=== PATIENT | male | born 1975 | race Caucasian/White ===

== ENCOUNTER 2020-09-18 04:20 | Emergency (ER) | payer MEDICARE, MEDICAID, SELFPAY ==
--- NOTE | ~2020-09-18 | CT_ITS ---
EXAMINATION: CT HEAD WITHOUT CONTRAST CLINICAL INFORMATION: Seizure with fall COMPARISON: 11/22/2017 TECHNIQUE: Contiguous axial imaging was performed from the skull base to vertex without intravenous contrast. This CT examination was performed using dose optimization techniques as appropriate, variously including the following: * Automated exposure control * Adjustment of mA and/or kV according to patient size (this includes techniques or standardized protocols for targeted exams where dose is matched to indication/reason for exam; i.e. extremities or head) Use of iterative reconstruction technique DLP: 716 mGy-cm. FINDINGS: There is no evidence of acute intracranial hemorrhage or territorial infarction. No abnormal mass effect or midline shift is seen. [place] to white matter differentiation is well preserved. No extra-axial fluid collections are identified. No hydrocephalus. No significant volume loss. There is no abnormal attenuation within the brain parenchyma. No acute osseous or soft tissue abnormality. Chronic depression of the right lamina papyracea. Partial opacification of the ethmoid air cells.. The mastoid air cells and visualized portions of the paranasal sinuses are otherwise well aerated. CT/CT head/brain wo con IMPRESSION: No acute intracranial pathology.
[2020-09-18 04:28] VITALS: BP 115/74; PULSE 101; RESP 15; O2SAT 96; BMI 28.0
[2020-09-18] MEDS: 0.9 % Sodium Chloride 1,000 ML 999 ML IV (04:46)
--- NOTE | 2020-09-18 04:46 | ECG_ITS ---
Test Reason : SEIZURE Blood Pressure : / mmHG Vent. Rate : 096 BPM Atrial Rate : 096 BPM P-R Int : 172 ms QRS Dur : 084 ms QT Int : 342 ms P-R-T Axes : 060 063 007 degrees QTc Int : 432 ms Normal sinus rhythm Nonspecific T wave abnormality Borderline ECG No previous ECGs available Referred By: Dena Gross Electronically Signed By:FELECIA KEYES
--- NOTE | 2020-09-18 04:47 | ED_ITS ---
HPI - Seizure General Chief Complaint: Seizure Stated Complaint: seizure Time Seen by Provider: 09/18/20 04:46 Source: family () and EMS Mode of arrival: EMS History of Present Illness HPI Narrative: 45-year-old male who presents via EMS for reported seizures. Patient remains groggy on arrival but protecting his airway in history was provided by the via phone call made by nursing. states that she and her were talking and then escalated to he did discussion at which time the patient began having seizures, she reports 3 seizures each 1 lasting approximately 1 minute. denies any color changes and states that patient did not fall. also endorses that patient's medications were recently increased. Related Data Allergies Allergy/AdvReac Type Severity Reaction Status Date / Time phenytoin [From DILANTIN] Allergy Unknown SWELLING Unverified 01/11/20 19:19 Review of Systems Review of Systems: Pertinent positives and negatives as stated in HPI 10 point review of systems is otherwise negative. PMFSH Past Medical History Source: nursing notes reviewed Social History Social History Advance Directives: No Physical Exam Vital Signs: Vital Signs: Last Vital Signs Pulse 101 H 09/18/20 04:28 Resp 15 09/18/20 04:28 BP 115/74 09/18/20 04:28 Pulse Ox 96 09/18/20 04:28 Body Mass Index 28.0 VITAL SIGNS: Reviewed. GENERAL: Well developed, well nourished, post ictal HEAD: Normocephalic/atraumatic, EYES: PERRLA, EOMI EARS: Ext canals without abnormality NOSE: Nares patent bilateral OROPHARYNX: no oral lesions noted, posterior pharynx clear NECK: Supple, no adenopathy LUNGS: Normal breath sounds. No adventitious sounds or accessory muscle use. SpO2<96> CARDIOVASCULAR: Regular rate and rhythm without noted murmurs ABDOMEN: Soft, non-tender, non-distended with bowel sounds. NEUROLOGIC: Alert and oriented x 4. Strength and sensation to light touch were grossly intact x 4. Course Course Course Narrative: This is a 45-year-old male with apparent seizure activity. Will evaluate for evidence infection, anemia, electrolyte, or low prescribed drug levels etiologies. - IV fluids, EKG, CT head, labs, seizure medication levels, MENDOZA, ethanol, UA Signed out to Dr. Constantino. MDM - Seizure Lab Data Result diagrams: 09/18/20 05:54 09/18/20 05:54 Labs: Lab Results 09/18/20 09/18/20 09/18/20 Range/Units 05:54 05:54 05:54 WBC 7.3 (4.8-10.8) X10*3/uL RBC 5.15 (4.60-5.80) X10*6/uL Hgb 15.2 (14.0-18.0) g/dl Hct 45.4 (42-52) % MCV 88.2 (80-98) fL MCH 29.5 (27.0-33.0) pg MCHC 33.5 (31.0-36.0) g/dl RDW 14.5 (11.0-16.0) % Plt Count 191 (160-400) X10*3/uL MPV 10.7 (9.4-12.4) fL Immature Gran % (Auto) 2.1 H (0.0-0.4) % Neut % (Auto) 40.9 L (45-73) % Lymph % (Auto) 47.2 H (20-40) % [place] % (Auto) 7.7 (2-11) % Eos % (Auto) 1.4 (0-4) % Baso % (Auto) 0.7 (0-2) % Lymph # (Auto) 3.5 (1.2-4.9) X10*3/uL [place] # (Auto) 0.6 (0.1-1.2) X10*3/uL Eos # (Auto) 0.1 (0.0-0.4) X10*3/uL Baso # (Auto) 0.1 (0.0-0.2) X10*3/uL Abs Immat Gran (auto) 0.15 H (0.00-0.03) X10*3/uL Absolute Neuts (auto) 3.0 (2.0-8.3) X10*3/uL Absolute Nucleated RBC 0.000 (0.0-0.012) X10*3/uL Nucleated RBC % (auto) 0.0 (0.0-0.2) /100WBC Sodium 141 (135-145) mmol/L Potassium 3.7 (3.3-5.1) mmol/L Chloride 109 H (96-108) mmol/L Carbon Dioxide 20 L (22-29) mmol/L Anion Gap 16 (12-20) BUN 10 (9-16) mg/dL Creatinine 1.30 (0.5-1.4) mg/dL Estim Creat Clear Calc 78.0 Estimated GFR 60 Random Glucose 98 (60-115) mg/dL Calcium 8.8 (8.4-10.2) mg/dL Total Bilirubin 0.3 (0.0-1.0) mg/dL AST 22 (5-37) U/L ALT 26 (0-40) U/L Alkaline Phosphatase 68 (39-117) U/L Total Protein 6.9 (6.5-8.0) g/dL Albumin 4.3 (3.5-5.0) g/dL Ethyl Alcohol 189 mg/dL ECG Data Attestation: I personally reviewed and interpreted this ECG as follows: Prior ECG tracings: not available for review Interpretation: Normal sinus rhythm, HR-96, no evidence of acute ischemia, IN/QRS/QTC is within normal limits.
--- NOTE | 2020-09-18 05:15 | PC.NURSE ---
pt refusing all treatment including bloodwork and EKG until he gets pain medication. MD notified
--- NOTE | 2020-09-18 05:36 | PC.NURSE ---
Addendum entered by Reese Mendez RN 09/18/20 05:42: per pt fiance, pt had also drank multiple beers tonight Original Note: spoke with pt danae Frost ([phone]) in order to obtain more information regarding pt's seizures and medications. medications per pt fiance are as follows: Divalproex Delayed Release: 750mg in the morning, 625mg at night Topamax 100mg BID Lamotirigine 150mg BID per pts fiance, her and pt were having an emotional conversation when seizures started. pt had 2-3 seizures before EMS arrival which lasted a minute and a half each. states pt did not fall or hit his head. aware.
[2020-09-18 05:59] LABS: Basophils Absolute Auto 0.1 X10*3/uL (0.0-0.2); Basophils Percent Auto 0.7 % (0-2); Eosinophils Absolute Auto 0.1 X10*3/uL (0.0-0.4); Eosinophils Percent Auto 1.4 % (0-4); Hematocrit 45.4 % (42-52); Hemoglobin 15.2 g/dl (14.0-18.0); Imm Gran Abs Auto 0.15 X10*3/uL (0.00-0.03); Imm Gran Pct Auto 2.1 % (0.0-0.4); Lymphocytes Absolute Auto 3.5 X10*3/uL (1.2-4.9); Lymphocytes Percent Auto 47.2 % (20-40); MANUAL DIFF FLAG NO; Mean Corpuscular HGB Conc 33.5 g/dl (31.0-36.0); Mean Corpuscular Hemoglobin 29.5 pg (27.0-33.0); Mean Corpuscular Volume 88.2 fL (80-98); Mean Platelet Volume 10.7 fL (9.4-12.4); Monocytes Absolute Auto 0.6 X10*3/uL (0.1-1.2); Monocytes Percent Auto 7.7 % (2-11); Neutrophils Percent Auto 40.9 % (45-73); Platelet Count 191 X10*3/uL (160-400); Red Blood Count 5.15 X10*6/uL (4.60-5.80); Red Cell Distribution Width 14.5 % (11.0-16.0); White Blood Count 7.3 X10*3/uL (4.8-10.8)
[2020-09-18 06:34] LABS: Ethanol 189 mg/dL
[2020-09-18 06:37] LABS: Alanine Aminotransferase 26 U/L (0-40); Albumin Level 4.3 g/dL (3.5-5.0); Alkaline Phosphatase 68 U/L (39-117); Anion Gap 16 (12-20); Aspartate Amino Transferase 22 U/L (5-37); Bilirubin Total 0.3 mg/dL (0.0-1.0); Blood Urea Nitrogen 10 mg/dL (9-16); Calcium 8.8 mg/dL (8.4-10.2); Carbon Dioxide 20 mmol/L (22-29); Chloride 109 mmol/L (96-108); Estimated Glomerular Filt Rate 60; Glucose Random 98 mg/dL (60-115); Potassium 3.7 mmol/L (3.3-5.1); Sodium 141 mmol/L (135-145); Total Protein 6.9 g/dL (6.5-8.0)
[2020-09-18 07:09] LABS: Valproate 65.2 mcg/mL (50.0-100.0)
[2020-09-18 07:26] VITALS: BP 94/57; PULSE 80; RESP 15; O2SAT 100
[2020-09-21 23:07] LABS: Lamotrigine Lamictal 7.9 mcg/mL (4.0-18.0)
== END 2020-09-18 07:53 | disposition home or self-care (01) ==
PROVIDERS: Emergency Provider Student in an Organized Health Care Education/Training Program
DX: R56.9 Unspecified convulsions (principal); Z79.899 Other long term (current) drug therapy
CPT/HCPCS: 36415; 70450; 80053; 80164; 80175; 80201; 80320; 85025; 93005; 99284

== ENCOUNTER 2020-09-25 11:18 | Emergency (ER) | payer MEDICARE, MEDICAID, SELFPAY ==
[2020-09-25 11:53] VITALS: BP 126/74; PULSE 89; RESP 16; TEMP 37.3; O2SAT 98; BMI 29.2
--- NOTE | 2020-09-25 12:22 | ED.BACK ---
HPI - Back Pain/Injury General Chief Complaint: Back Pain/Injury Stated Complaint: back pain Time Seen by Provider: 09/25/20 12:13 History of Present Illness HPI Narrative: Patient complains of left-sided back pain no radiation of pain no numbness weakness tingling or changes to bowel or bladder This happened yesterday after lifting a heavy object at home and he felt a sharp pain Related Data Previous Rx's Medication Instructions Recorded acetaminophen 1,000 mg PO QID PRN #30 tab 09/25/20 acetaminophen 1,000 mg PO QID PRN #30 tab 09/25/20 cyclobenzaprine 5 mg PO TID PRN #10 tab 09/25/20 cyclobenzaprine 5 mg PO TID PRN #14 tab 09/25/20 ibuprofen 600 mg PO Q6H PRN #20 tab 09/25/20 ibuprofen 600 mg PO Q6H PRN #20 tab 09/25/20 oxycodone 5 mg PO Q6H PRN #10 tab 09/25/20 oxycodone 5 mg PO Q6H PRN #14 tab 09/25/20 Allergies Allergy/AdvReac Type Severity Reaction Status Date / Time phenytoin [From DILANTIN] Allergy Unknown SWELLING Unverified 01/11/20 19:19 Review of Systems Review of Systems: Positive for left-sided back pain Negatives are no fever no chills no dizziness no weakness no fainting no feeling faint no numbness weakness or tingling no changes to bowel or bladder no incontinence no dysuria no frequency no chest pain no abdominal pain no nausea or vomiting no blood in the urine no rash Yes all other systems are reviewed and are negative PMFSH Past Medical History Source: nursing notes reviewed Social History Social History Advance Directives: Yes Advance Directives Information Provided: Yes Advance Directives on File: No Physical Exam Vital Signs: Vital Signs: Last Vital Signs Temp 99.1 F 09/25/20 11:53 Pulse 89 09/25/20 11:53 Resp 16 09/25/20 11:53 BP 126/74 09/25/20 11:53 Pulse Ox 98 09/25/20 11:53 Body Mass Index 29.2 General appearance no acute distress Head is normocephalic atraumatic Neck is supple nontender Respiratory no distress Abdomen soft nontender The back had left lower lumbar paraspinal tenderness no bony tenderness no CVA tenderness, skin was normal without wound rash, no redness no deformities no swelling Extremities full range of motion x4 Neuro motor is 5 over 5 times for sensation is intact and symmetrical and gait is normal Course Course Course Narrative: Patient is treated for musculoskeletal back pain Discharge Plan Discharge Clinical Impression: Strain of lumbar region Patient Disposition: Home, Self-Care Additional Instructions: Chiropractor may be helpful Follow with primary doctor for physical therapy and further care if not improved Return any time for weakness, incontinence, any worse condition or any concerns Prescriptions: New oxycodone 5 mg tablet 5 mg PO Q6H PRN (Reason: pain) Qty: 14 RF: 0 acetaminophen 500 mg tablet 1,000 mg PO QID PRN (Reason: pain) Qty: 30 RF: 0 ibuprofen 600 mg tablet 600 mg PO Q6H PRN (Reason: pain) Qty: 20 RF: 0 cyclobenzaprine 5 mg tablet 5 mg PO TID PRN (Reason: muscle spasm) Qty: 14 RF: 0 oxycodone 5 mg tablet 5 mg PO Q6H PRN (Reason: pain) Qty: 10 RF: 0 acetaminophen 500 mg tablet 1,000 mg PO QID PRN (Reason: pain) Qty: 30 RF: 0 cyclobenzaprine 5 mg tablet 5 mg PO TID PRN (Reason: muscle spasm) Qty: 10 RF: 0 ibuprofen 600 mg tablet 600 mg PO Q6H PRN (Reason: pain) Qty: 20 RF: 0 Interventions: ED Discharge Assessment Last Done: 09/25/20 12:39 Discharge Date/Time: 09/25/20 12:39
[2020-09-25] MEDS: Ketorolac Tromethamine 30 MG/ML VIAL IM (12:33)
== END 2020-09-25 12:39 | disposition home or self-care (01) ==
PROVIDERS: Emergency Provider Emergency Medicine
DX: S39.012A Strain of muscle, fascia and tendon of lower back, initial encounter (principal); X50.0XXA Overexertion from strenuous movement or load, initial encounter; Y93.E9 Activity, other interior property and clothing maintenance; Y92.019 Unspecified place in single-family (private) house as the place of occurrence of the external cause; Y99.9 Unspecified external cause status
CPT/HCPCS: 96372; 99283; 99284; J1885